=== PATIENT | male | born 1945 | race Caucasian/White ===

== ENCOUNTER → 2023-09-24 07:18 | Outpatient (REF) | payer MEDICARE, SELFPAY | LOC: MRI 3T 07:18 | PROVIDERS: ATTENDING PHYSICIAN Family Medicine | DX: M54.12 Radiculopathy, cervical region (principal); M48.00 Spinal stenosis, site unspecified; M54.32 Sciatica, left side | CPT/HCPCS: 72141 ==

== ENCOUNTER → 2023-09-25 10:21 | Outpatient (REF) | payer MEDICARE, SELFPAY | LOC: MRI 3T 10:21 | PROVIDERS: ATTENDING PHYSICIAN Family Medicine | DX: M54.12 Radiculopathy, cervical region (principal); M48.00 Spinal stenosis, site unspecified; M54.32 Sciatica, left side | CPT/HCPCS: 72148 ==

== ENCOUNTER → 2023-11-09 06:25 | Day surgery (SDC) | payer MEDICARE, SELFPAY | LOC: GI 06:25 | PROVIDERS: ATTENDING PHYSICIAN Internal Medicine Gastroenterology | DX: Z12.11 Encounter for screening for malignant neoplasm of colon (principal); D12.3 Benign neoplasm of transverse colon; D12.5 Benign neoplasm of sigmoid colon; K51.40 Inflammatory polyps of colon without complications; K57.30 Diverticulosis of large intestine without perforation or abscess without bleeding; K64.0 First degree hemorrhoids | CPT/HCPCS: 45385; 45380; 88305 ==